=== PATIENT | male | born 1995 | race Caucasian/White ===

== ENCOUNTER 2017-04-30 07:44 | Inpatient (IN) | payer MEDICAID, OTHER ==
[2017-04-30 07:50] LABS: Glucose,Whole Blood 135 mg/dL (75-99)
[2017-04-30 08:46] LABS: Amphetamine Screen,Urine Not Detected (NotDetected); Barbiturate Screen,Urine Not Detected (NotDetected); Benzodiazepines Screen,Urine Detected (NotDetected); Cocaine Screen,Urine Not Detected (NotDetected); Methadone Screen, Urine Not Detected (NotDetected); Opiate Screen,Urine Not Detected (NotDetected); Oxycodone Screen, Urine Not Detected (NotDetected); Phencyclidine Screen,Urine Not Detected (NotDetected); Tricyclic Antidepressant,Urine Not Detected (NotDetected); Urn Cannabinoid Scrn Detected (NotDetected)
--- NOTE | 2017-04-30 09:17 | ED ---
General Adult HPI <Rj Torres - Last Filed: 04/30/17 10:44> - General Source: patient, EMS, RN notes reviewed Mode of arrival: EMS Limitations: no limitations <Cain Alfaro - Last Filed: 04/30/17 10:53> - General Chief complaint: Altered Mental Status Stated complaint: confusion Time Seen by Provider: 04/30/17 08:16 - History of Present Illness Initial comments: Patient 21-year-old male who presents emergency room in the custody of the police. Patient walked into the police department because was lost. I have brought him here petitioned the patient. He does admit that he was trying to get to work and dropped today. States he put directions into his GPS and brought him here. He believes his car is on the parking lot. Patient states she is trying to get to a new job putting his weight. He does admit that he went and stopped and talked to the police because of this. Patient denies any other complaints or symptoms. He does admit to taking a Xanax last night and also smoking marijuana was nervous about new job. (Cain Alfaro) - Related Data Home Medications Medication Instructions Recorded Confirmed No Known Home Medications [No 04/30/17 04/30/17 Known Home Medications] Allergies Allergy/AdvReac Type Severity Reaction Status Date / Time cefuroxime [From Ceftin] Allergy Rash/Hives Verified 04/30/17 08:41 Review of Systems ROS Other: All systems not noted in ROS Statement are negative. <Rj Torres - Last Filed: 04/30/17 10:44> ROS Other: All systems not noted in ROS Statement are negative. <Cain Alfaro - Last Filed: 04/30/17 10:53> ROS Statement: Those systems with pertinent positive or pertinent negative responses have been documented in the HPI. Past Medical History Past Medical History: No Reported History History of Any Multi-Drug Resistant Organisms: None Reported Past Surgical History: No Surgical Hx Reported Past Psychological History: No Psychological Hx Reported Smoking Status: Never smoker Past Alcohol Use History: Occasional Past Drug Use History: Cocaine, Marijuana <Cain Alfaro - Last Filed: 04/30/17 10:53> General Exam <Rj Torres - Last Filed: 04/30/17 10:44> Limitations: no limitations <Cain Alfaro - Last Filed: 04/30/17 10:53> - General Exam Comments Initial Comments: General: The patient is awake and alert, in no distress, and does not appear acutely ill. Eye: Pupils are equal, round and reactive to light, extra-ocular movements are intact. No nystagmus. There is normal conjunctiva bilaterally. No signs of icterus. Ears, nose, mouth and throat: There are moist mucous membranes and no oral lesions. Neck: The neck is supple, there is no tenderness or JVD. Cardiovascular: There is a regular rate and rhythm. No murmur, rub or gallop is appreciated. Respiratory: Lungs are clear to auscultation, respirations are non-labored, breath sounds are equal. No wheezes, stridor, rales, or rhonchi. Musculoskeletal: Normal ROM, no tenderness. Strength 5/5. Sensation intact. Pulses equal bilaterally 2+. Neurological: A&O x 3. CN II-XII intact, There are no obvious motor or sensory deficits. Coordination appears grossly intact. Speech is normal. Skin: Skin is warm and dry and no rashes or lesions are noted. Psychiatric: Cooperative. Alert and oriented (Cain Alfaro) Course <Rj Torres - Last Filed: 04/30/17 10:44> <Cain Alfaro - Last Filed: 04/30/17 10:53> Vital Signs 04/30/17 07:45 Temperature 99.2 F Pulse Rate 91 Respiratory 16 Rate Blood Pressure 133/73 O2 Sat by Pulse 99 Oximetry - Reevaluation(s) Reevaluation #1: 04/30/17 10:44 Patient reevaluated by myself, Dr. Torres. Patient has unclear thought processes. Patient believes he is here because he was arrested by the police for not remembering his union members name. Patient was seen by mental health services who does recommend admission. Positive clinical certificate completed. 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 ID Amairani Aiken Urine Opiates Screen Not Detected (NotDetected) Ur Oxycodone Screen Not Detected (NotDetected) Urine Methadone Screen Not Detected (NotDetected) Ur Propoxyphene Screen Not Detected (NotDetected) Ur Barbiturates Screen Not Detected (NotDetected) U Tricyclic Antidepress Not Detected (NotDetected) Ur Phencyclidine Scrn Not Detected (NotDetected) Ur Amphetamines Screen Not Detected (NotDetected) U Methamphetamines Scrn Not Detected (NotDetected) U Benzodiazepines Scrn Detected H (NotDetected) Urine Cocaine Screen Not Detected (NotDetected) U Marijuana (THC) Screen Detected H (NotDetected) Disposition <Rj Torres - Last Filed: 04/30/17 10:44> Time of Disposition: 10:53 <Cain Alfaro - Last Filed: 04/30/17 10:53> Clinical Impression: Schizophrenia, acute Disposition: TRANSFER TO PSYCH HOSP/UNIT Referrals: None,Stated [Primary Care Provider] - 1-2 days
[2017-04-30] MEDS ORDERED: MAGNESIUM HYDROXIDE 2,400 MG/10 ML CUP PO PRN (12:36)
[2017-04-30] MEDS ORDERED: MAG HYDROX/AL HYDROX/SIMETH 30 ML CUP PO PRN (12:36)
[2017-04-30] MEDS ORDERED: ACETAMINOPHEN TAB 325 MG TAB PO PRN (12:36)
[2017-04-30] MEDS ORDERED: ZIPRASIDONE 20 MG VIAL IM PRN (12:36)
[2017-04-30] MEDS ORDERED: LORazepam 1 MG TAB PO PRN (12:36)
[2017-04-30 13:17] VITALS: BMI 31.9
[2017-04-30] MEDS: OLANZapine 5 MG TAB PO SCH ×2 (15:01→21:48)
[2017-04-30] MEDS ORDERED: HALOPERIDOL 5 MG TAB PO PRN (15:29)
[2017-04-30] MEDS: HALOPERIDOL LACTATE 5 MG/ML 1 ML VIAL IM PRN (16:03)
[2017-04-30] MEDS: LORazepam 2 MG/ML INJ IM PRN (16:03)
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
[2017-05-01 09:45] LABS: Basophils # (A) 0.1 k/uL (0-0.2); Basophils % (A) 1 %; Eosinophils # (A) 0.1 k/uL (0-0.7); Eosinophils % (A) 1 %; HCT 46.8 % (39.0-53.0); HGB 15.2 gm/dL (13.0-17.5); Lymphocytes # (A) 2.8 k/uL (1.0-4.8); Lymphocytes % (A) 30 %; MCH 30.6 pg (25.0-35.0); MCHC 32.5 g/dL (31.0-37.0); MCV 94.2 fL (80.0-100.0); Mean Platelet Volume 7.3; Monocytes # (A) 0.6 k/uL (0-1.0); Monocytes % (A) 6 %; Neutrophils # (A) 5.7 k/uL (1.3-7.7); Neutrophils % (A) 61 %; Platelet Count 417 k/uL (150-450); RBC 4.96 m/uL (4.30-5.90); RDW 13.1 % (11.5-15.5); WBC 9.3 k/uL (4.0-11.0)
[2017-05-01] MEDS: OLANZapine 5 MG TAB PO SCH ×2 (10:00→20:25)
[2017-05-01 10:28] LABS: ALT 31 U/L (21-72); AST 19 U/L (17-59); Albumin 5.1 g/dL (3.5-5.0); Alkaline Phosphatase 45 U/L (38-126); Anion Gap 13 mmol/L; Blood Urea Nitrogen 18 mg/dL (9-20); Calcium 10.9 mg/dL (8.4-10.2); Carbon Dioxide 29 mmol/L (22-30); Chloride 99 mmol/L (98-107); Glucose 115 mg/dL (74-99); Potassium 4.2 mmol/L (3.5-5.1); Sodium 141 mmol/L (137-145); Total Bilirubin 0.7 mg/dL (0.2-1.3); Total Protein 8.3 g/dL (6.3-8.2)
[2017-05-01] MEDS: HALOPERIDOL LACTATE 5 MG/ML 1 ML VIAL IM PRN (13:20)
[2017-05-01] MEDS: LORazepam 2 MG/ML INJ IM PRN (13:21)
--- NOTE | 2017-05-01 16:26 | PN ---
PROGRESS NOTE DATE OF SERVICE: 05/01/2017. CHIEF COMPLAINT: The patient was admitted due to disorganized thoughts and behavior. He was delusional. He was confused and had bizarre thoughts. He was significantly distressed. INTERVAL HISTORY: Patient has been doing fair. He has had episodes where he gets quite confused and disordered in his thoughts. He will get demanding to leave. He will make references that make no sense. He can get quite intense. Yesterday and today he has required p.r.n. Haldol and Ativan. He does respond least to some extent to the medications. He has been accepting oral medications as well. He wanders about the unit. He tends to be hyperactive and intense in his manner. He continues to be quite disorganized in his thoughts. He did make an effort to elope today. He gets very intense in his manner, though he does not get into any kind of agitation or aggressive behavior. He has not had change in his general health. He tolerates his psychotropic medications. MENTAL STATUS: Patient was wandering about the unit. He gave fair eye contact. His thoughts were disorganized. He rambled and had loose association. His affect was intense. His mood is somewhat elevated. He was moderately distressed. ASSESSMENT: I will continue the current diagnosis and general treatment plan. 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 He responds to some extent to Haldol injections 10 mg along with 2 mg of Ativan. I will consider a trial injection of a higher dose of just Ativan which is the treatment of choice for catatonic excitement. Continue Zyprexa 15 mg twice a day. We will continue to focus on stabilization and discharge planning. MMODL / IJN: [id number] /
[2017-05-02] MEDS: OLANZapine 5 MG TAB PO SCH ×2 (09:20→20:41)
[2017-05-02] MEDS: LORazepam 1 MG TAB PO PRN (09:20)
[2017-05-02] MEDS ORDERED: HALOPERIDOL 5 MG TAB PO SCH (18:00)
[2017-05-02 18:56] LABS: T4, Free (Free Thyroxine) 1.68 ng/dL (0.78-2.19)
--- NOTE | 2017-05-02 21:46 | PN ---
PROGRESS NOTE DATE OF SERVICE: 05/02/2017. CHIEF COMPLAINT: The patient was admitted due to disorganized thoughts and behavior. He was delusional. He was confused and had bizarre thoughts. He was significantly distressed. INTERVAL HISTORY: The patient has been doing fair. He continues to present in quite an intense manner. He does not show significant issues with psychomotor activation; however, he continues with a lot of what appears to be racing thoughts, flight of ideas, disconnected thoughts and confusion. 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 He believes he needs to get out of the hospital. He can be quite repetitive about themes and does not seem to comprehend when staff try to guide him to what his current situation is. He continues to make some efforts toward trying to leave the unit. He does not do so in any kind of aggressive or assertive way, though believes that he needs to be out of the hospital so that he could begin work at [employer], which he makes references to over and over. He has had a pulse up to 143, otherwise has not had other changes in his general health. He tolerates his psychotropic medications. MENTAL STATUS: Patient gave an intense stare. He was tangential in his responses. He tended to ramble at times. His thoughts were disconnected. His affect was intense, his mood dysphoric. He seems significantly distressed. There was no indication of abnormal movements, tremor or rigidity. He had normal gait and stance. ASSESSMENT: I will continue the current diagnosis and treatment plan. I will start the patient on Haldol 10 mg twice a day as regular dosing in addition to Zyprexa 15 mg twice a day. The patient presents with significant psychotic symptoms. In addition, he is very delusional with pervasive thought disorder and little ability to connect with reality. I will order an EKG for an elevated pulse of 143. We will continue to focus on stabilization and discharge planning. MMODL / IJN: [id number] /
[2017-05-03] MEDS: OLANZapine 5 MG TAB PO SCH ×3 (08:16→21:44)
--- NOTE | 2017-05-04 08:47 | PN ---
PROGRESS NOTE DATE OF SERVICE: 05/03/2017. CHIEF COMPLAINT: The patient was admitted due to disorganized thoughts and behavior. He was delusional, confused and had bizarre thoughts. He was significantly distressed. INTERVAL HISTORY: Patient has been doing fair. He had a quiet evening last night. He slept fairly well. Today he has been up and about. He comes out on the unit. He wanders about the unit. He will interact some with others. It is note worthy that overall he seems to be doing a little bit better, where his thoughts are a little bit more organized, goal directed and reality based. He makes less references to things that are disorganized and disconnected. He still has fluctuating thoughts where as one moment he will say that he wants to sign a 3 day intent to leave the unit immediately and then soon thereafter reports no issues with that at all and says it is good he is in the hospital and getting help. He has talked less about the idea that he is starting work and more about the recognition that he is in the hospital and in a place that is providing him with some structure and support. He has been attending groups. Sometimes his thoughts are a little disconnected, though for the most part he has been appropriate in his general interactions. He has not had change in his general health, though still has been running a high pulse in the 120+ range. Blood pressure has been stable. He tolerates his psychotropic medications. MENTAL STATUS: Patient gave good eye contact. He asked a few appropriate questions. The seemed to be reassured with the answers I gave him particularly relating to questions about hospitalization. His thoughts were little bit more coherent and goal directed. His affect was somewhat constricted. His mood was quiet. He did appear to be distressed. ASSESSMENT: I will continue the current diagnosis and treatment plan. I will continue psychotropic medications the same. The patient appears to be making progress. We will continue to focus on stabilization and discharge planning. MMODL / IJN: [id number] /
[2017-05-04] MEDS: OLANZapine 5 MG TAB PO SCH ×2 (09:24→20:38)
--- NOTE | 2017-05-04 14:29 | PN ---
PROGRESS NOTE DATE OF SERVICE: 05/04/2017. CHIEF COMPLAINT: The patient was admitted due to disorganized thoughts and behavior. He was delusional, confused and had bizarre thoughts. He was significantly distressed. INTERVAL HISTORY: The patient has been doing fair. He had a quiet evening last night. He slept well. Today he has been up. He comes out on the unit. He has been attending groups. He has been appropriate in his interactions. Most noteworthy is that he seems to be slowly becoming more organized in his thoughts. He tends to have less rambling and disconnected thoughts. He is more aware of immediate issues. He was able to talk fairly appropriately about discharge planning. He has not had change in his general health. He tolerates his psychotropic medications. MENTAL STATUS: Patient gave good eye contact. He had a calm manner. His thoughts were clear. His affect was a little constricted. His mood was even. He did not appear to be distressed. He continues with looseness of association, though clearly showing improvement. ASSESSMENT: I will continue the current diagnosis and treatment plan. We will continue psychotropic medications the same. I would anticipate the patient being able to be discharged by the end of week. MMODL / IJN: [id number] /
--- NOTE | 2017-05-05 08:35 | P.CRDCN ---
History of Present Illness History of present illness: Male patient in the psychiatry unit. Cardiac G consulted for abnormal ECG. Patient has sinus tachycardia but he denies any symptoms prior to that. Specifically no chest discomfort no undue shortness of breath no palpitations no loss of consciousness prior to or at the time of admission or thereafter ECG reveals and shows very nonspecific ST-T changes in the inferior leads only. Sinus tachycardia noted. Labs reviewed. No cardiac history. Patient interviewed and examined with nurse practitioner and I would recommend a repeat 12-lead ECG and a 2-D echo and Doppler study to assess chronic structure and function if these are normal as no further cardiac workup needed Specifically on cardiac examination heart sounds were completely normal no murmurs no gallop no rub See full dictation by nurse practitioner Past Medical History Past Medical History: No Reported History History of Any Multi-Drug Resistant Organisms: None Reported Past Surgical History: No Surgical Hx Reported Additional Past Anesthesia/Blood Transfusion Reaction / Comment(s): Pt has never received anesthesia. Smoking Status: Never smoker - Past Family History Father History Unknown: Yes Mother Additional Family Medical History / Comment(s): Mother is healthy. Medications and Allergies Home Medications Medication Instructions Recorded Confirmed Type No Known Home Medications [No 04/30/17 04/30/17 History Known Home Medications] Allergies Allergy/AdvReac Type Severity Reaction Status Date / Time cefuroxime [From Ceftin] Allergy Rash/Hives Verified 04/30/17 08:41 Physical Exam Vitals: Vital Signs Temp Pulse Pulse Resp BP BP 05/05/17 06:37 97.6 F 108 H 16 145/63 05/04/17 20:40 84 16 128/74 05/04/17 15:04 101 H 16 127/72 Results 05/01/17 09:08 05/01/17 09:08 Current Medications Generic Name Dose Route Start Last Admin Trade Name Freq PRN Reason Stop Dose Admin Acetaminophen 650 mg 04/30/17 12:36 Tylenol Tab PO Q4HR PRN Pain/Discomfort Al Hydroxide/Mg Hydroxide 30 ml 04/30/17 12:36 Maalox PO Q4HR PRN GI Upset Haloperidol Lactate 10 mg 04/30/17 15:29 05/01/17 13:20 Haldol IM 10 mg BID PRN Administration moderate to severe agitation Lorazepam 1 mg 04/30/17 12:36 Ativan PO TID PRN Anxiety, Agitation Lorazepam 2 mg 04/30/17 15:27 05/02/17 09:20 Ativan PO 2 mg Q12HR PRN Administration agitation and anxiety Lorazepam 2 mg 04/30/17 15:27 05/01/17 13:21 Ativan IM 2 mg BID PRN Administration moderate to severe agitation Magnesium Hydroxide 2,400 mg 04/30/17 12:36 Milk Of Magnesia PO DAILY PRN Constipation Olanzapine 15 mg 04/30/17 15:05 05/04/17 20:38 Zyprexa PO 15 mg BID LUZ Administration 05/01/17 09:08 05/01/17 09:08
--- NOTE | 2017-05-05 09:41 | P.HPMEDMHU ---
History of Present Illness H&P Date: 04/30/17 Chief Complaint: psychotic 21-year-old male was brought in with psychotic episode. Patient thought that he was here for a job interview. He says he was nervous to reduce when he took one Xanax.Patient says he is upset because he was given a medication he didnt want. He says he just was anxious about his new job a now he is here. Review of Systems Constitutional: Denies chills, Denies fever Eyes: denies blurred vision, denies irritation, denies itching Ears, nose, mouth and throat: Denies dental pain, Denies nasal discharge, Denies vertigo Cardiovascular: Denies chest pain, Denies palpitations, Denies shortness of breath Respiratory: Denies cough, Denies pleurisy Gastrointestinal: Denies diarrhea, Denies nausea, Denies vomiting Genitourinary: Denies discharge, Denies polyuria Musculoskeletal: Reports as per HPI, Denies fractures Integumentary: Denies pruritus, Denies sores Neurological: Denies head injury, Denies tingling, Denies vertigo Psychiatric: Reports anxiety, Denies suicidal ideation Endocrine: Denies polyphagia, Denies polyuria Hematologic/Lymphatic: Denies easy bleeding, Denies lymphadenopathy Allergic/Immunologic: Denies persistent infections, Denies wheezing Past Medical History Past Medical History: No Reported History History of Any Multi-Drug Resistant Organisms: None Reported Past Surgical History: No Surgical Hx Reported Additional Past Anesthesia/Blood Transfusion Reaction / Comment(s): Pt has never received anesthesia. Smoking Status: Never smoker - Past Family History Father History Unknown: Yes Mother Additional Family Medical History / Comment(s): Mother is healthy. Medications and Allergies Home Medications Medication Instructions Recorded Confirmed Type No Known Home Medications [No 04/30/17 04/30/17 History Known Home Medications] Allergies Allergy/AdvReac Type Severity Reaction Status Date / Time cefuroxime [From Ceftin] Allergy Rash/Hives Verified 04/30/17 08:41 Physical Exam Vitals: Vital Signs Temp Pulse Pulse Resp BP BP Pulse Ox 04/30/17 11:47 97.1 F L 92 18 143/99 04/30/17 07:45 99.2 F 91 16 133/73 99 Intake and Output 04/30/17 04/30/17 04/30/17 06:59 14:59 22:59 Other: Weight 106.821 kg Patient Weight 05/01/17 06:59 Weight 106.821 kg - EENT Eyes: EOMI, PERRLA ENT: normal oropharynx - Neck Neck: no lymphadenopathy, no stridor - Respiratory Respiratory: bilateral: CTA, negative: rales, rhonchi, wheezing, prolonged expiration - Cardiovascular Rhythm: regular Heart sounds: normal: S1, S2 - Gastrointestinal General gastrointestinal: normal bowel sounds, no tenderness - Integumentary Integumentary: no pale, no rash - Neurologic Neurologic: CNII-XII intact - Musculoskeletal Musculoskeletal: gait normal - Psychiatric Psychiatric: A&O x's 3 Cranial Nerve Examination - Cranial Nerves Cranial Nerve II- Optic: Intact Cranial Nerve III- Oculomotor: Intact Cranial Nerve IV- Trochlear: Intact Cranial Nerve V- Trigeminal: Intact Cranial Nerve - Abducens: Intact Cranial Nerve VII- Facial: Intact Cranial Nerve VIII- Auditory: Intact Cranial Nerve IX- Glossopharyngeal: Intact Cranial Nerve X- Vagus: Intact Cranial Nerve XI- Accessory: Intact Cranial Nerve XII- Hypoglossal: Intact Results Labs: Abnormal Lab Results - Last 24 Hours (Table) 04/30/17 04/30/17 Range/Units 07:48 08:10 POC Glucose (mg/dL) 135 H (75-99) mg/dL U Benzodiazepines Scrn Detected H (NotDetected) U Marijuana (THC) Screen Detected H (NotDetected) Thrombosis Risk Factor Assmnt - Choose All That Apply Any of the Below Risk Factors Present?: Yes Each Factor Represents 1 point: Obesity (BMI >25) Other Risk Factors: No Other congenital or acquired thrombophilia - If yes, enter type in comment: No Thrombosis Risk Factor Assessment Total Risk Factor Score: 1 Thrombosis Risk Factor Assessment Level: Low Risk Assessment and Plan (1) Schizophrenia, acute Narrative/Plan: per psychiatry Current Visit: Yes Status: Acute Code(s): F23 - BRIEF PSYCHOTIC DISORDER SNOMED Code(s): 25423571
[2017-05-05] MEDS: OLANZapine 5 MG TAB PO SCH ×2 (09:48→20:28)
--- NOTE | 2017-05-05 12:11 | P.CRDCN ---
History of Present Illness Consult date: 05/05/17 History of present illness: Mr. Burgess is a pleasant 21-year-old male with past medical history of ADHD, regular marijuana use and occasional cocaine abuse. We have been asked to see him in consultation for tachycardia. He denies history of heart disease and has never seen a eye surgeon for any reason. He denies chest pain, shortness of breath, dizziness, palpitations, diaphoresis, nausea or vomiting. He is newly diagnosed with schizophrenia and has been quite agitated about being hospitalized. EKG was obtained secondary to elevated pulse rate and showed sinus tachycardia with very non-specific ST-T changes in inferior leads. Laboratory data reviewed and is unremarkable. He takes no cardiac medications. Denies cough, fever or chills. Review of Systems At the time of my exam: CONSTITUTIONAL: Denies fever. Denies chills. EYES: Denies blurred vision. Denies vision changes. Denies eye pain. EARS, NOSE, MOUTH & THROAT: Denies headache. Denies sore throat. Denies ear pain. CARDIOVASCULAR: Denies chest pain. Denies shortness of breath. Denies orthopnea. Denies PND. Denies palpitations. RESPIRATORY: Denies cough. GASTROINTESTINAL: Denies abdominal pain. Denies diarrhea. Denies constipation. Denies nausea. Denies vomiting. MUSCULOSKELETAL: Denies myalgias. INTEGUMENTARY: Denies pruitis. Denies rash. NEUROLOGIC: Denies numbness. Denies tingling. Denies weakness. PSYCHIATRIC: Denies anxiety. Denies depression. ENDOCRINE: Denies fatigue. Denies weight change. Denies polydipsia. Denies polyurina. GENITOURINARY: Denies burning, hematuria or urgency with micturation. HEMATOLOGIC: Denies history of anemia. Denies bleeding. Past Medical History Past Medical History: No Reported History History of Any Multi-Drug Resistant Organisms: None Reported Past Surgical History: No Surgical Hx Reported Additional Past Anesthesia/Blood Transfusion Reaction / Comment(s): Pt has never received anesthesia. Smoking Status: Never smoker - Past Family History Father History Unknown: Yes Mother Additional Family Medical History / Comment(s): Mother is healthy. Medications and Allergies Home Medications Medication Instructions Recorded Confirmed Type No Known Home Medications [No 04/30/17 04/30/17 History Known Home Medications] Allergies Allergy/AdvReac Type Severity Reaction Status Date / Time cefuroxime [From Ceftin] Allergy Rash/Hives Verified 04/30/17 08:41 Physical Exam Vitals: Vital Signs Temp Pulse Pulse Resp BP BP 05/05/17 06:37 97.6 F 108 H 16 145/63 05/04/17 20:40 84 16 128/74 05/04/17 15:04 101 H 16 127/72 Blood pressure 145/63, heart rate 108, afebrile. GENERAL: This is a 21-year-old male in no apparent distress at the time of my examination. HEENT: Head is atraumatic, normocephalic. Pupils are equal, round. Sclerae anicteric. Conjunctivae are clear. Mucous membranes of the mouth are moist. Neck is supple. There is no jugular venous distention. No carotid bruit is heard. LUNGS: Clear to auscultation no wheezes, rales or rhonchi. No chest wall tenderness is noted on palpation or with deep breathing. HEART: Regular rate and rhythm without murmurs, rubs or gallops. S1 and S2 heard. ABDOMEN: Soft, non-tender. Bowel sounds are heard. No organomegaly noted. EXTREMITIES: 2+ peripheral pulses with no evidence of peripheral edema and no calf tenderness noted. NEUROLOGIC: Patient is awake, alert and oriented x3. Results 05/01/17 09:08 05/01/17 09:08 Current Medications Generic Name Dose Route Start Last Admin Trade Name Freq PRN Reason Stop Dose Admin Acetaminophen 650 mg 04/30/17 12:36 Tylenol Tab PO Q4HR PRN Pain/Discomfort Al Hydroxide/Mg Hydroxide 30 ml 04/30/17 12:36 Maalox PO Q4HR PRN GI Upset Haloperidol Lactate 10 mg 04/30/17 15:29 05/01/17 13:20 Haldol IM 10 mg BID PRN Administration moderate to severe agitation Lorazepam 1 mg 04/30/17 12:36 Ativan PO TID PRN Anxiety, Agitation Lorazepam 2 mg 04/30/17 15:27 05/02/17 09:20 Ativan PO 2 mg Q12HR PRN Administration agitation and anxiety Lorazepam 2 mg 04/30/17 15:27 05/01/17 13:21 Ativan IM 2 mg BID PRN Administration moderate to severe agitation Magnesium Hydroxide 2,400 mg 04/30/17 12:36 Milk Of Magnesia PO DAILY PRN Constipation Olanzapine 15 mg 04/30/17 15:05 05/05/17 09:48 Zyprexa PO 15 mg BID LUZ Administration 05/01/17 09:08 05/01/17 09:08 Assessment and Plan Assessment: ASSESSMENT 1. Sinus tachycardia 2. Acute schizophrenia PLAN Repeat EKG now. Obtain 2-D echocardiogram and Doppler study to assess cardiac structure and function. He needs no further cardiac workup at this time. Zyprexa is a new addition to his regimen and does carry a risk of tachycardia, perhaps an alternative anti-psychotic or dose reductions. Nurse Practitioner note has been reviewed, I agree with a documented findings and plan of care. Patient was seen and examined.
--- NOTE | 2017-05-05 16:46 | P.PN ---
Progress Note - Text Date of service: 05/05/2017 Chief complaint: "I'm feeling better and I want to leave " Subjective: The patient has been seen today as follow-up, chart reviewed, case discussed with the treatment team. Patient slept about 7 hours last night. Patient has been not persistently going to groups and other unit activities. Patient reports fair appetite problems. Generally the patient minimized most of his psychiatric symptoms and reported that he has been feeling increasingly stable mentally and emotionally. Patient explained that the reason for his admission he went to the police station and he thought that is a [employer] building and he gets very competitive and not compliant with the police. Patient denies any current depression or mood swings and he reported that feeling less anxious and denies any racing thoughts. The patient denies any hallucination and he denies feeling paranoid. He denies any suicidal or homicidal ideation. Patient denies any prior psychiatric hospitalization and reported the only psychiatric diagnosis he had before this admission was ADD. Patient admitted for using Xanax and marijuana before he went to the police station. The patient is compliant with his medications and denies any adverse reactions. Review of other systems: Patient denies any physical symptoms besides what has been mentioned above. No breathing problems, no chest pain reported today. Objective: Vitals has been reviewed. Mental status examination; Appearance: The patient appears stated age, fairly groomed, no specific features. Gait/posture:normal gait, Normal arm swinging: No abnormal movements. Attitude and behavior: engaged, cooperative, eye contact. Motor activity: normal psychomotor activity Speech: Normal rate and dressed Mood: anxious Affect: Constricted to flat Thought form: goal-directed, linear, coherent. Thought content: Non-delusional, denies suicidal thoughts, denies homicidal thoughts, denies intentions or plans. Perception: Denies any auditory or visual hallucinations Attention: No impairment. Patient was able to repeat serial 5. Orientation: Patient patient was fully oriented to time place person and situation. Insight: Patient has limited insight about his psychiatric disorder. Judgment: Patient has limited judgment about his psychiatric treatment. Assessment: Unspecified psychosis Rule out substance-induced psychosis Plan: Continue with inpatient psychiatric hospitalization for monitoring and continue treatment. Continue group therapy and other unit activities. Continue psychiatric medications: Zyprexa 15 mg twice a day for psychotic symptoms
[2017-05-06] MEDS: OLANZapine 5 MG TAB PO SCH ×2 (08:24→21:55)
--- NOTE | 2017-05-06 10:54 | ECHOF ---
Referral Reason:ekg changes MEASUREMENTS -------- HEIGHT: 182.9 cm WEIGHT: 108.0 kg BP: 128/74 RVIDd: 3.3 cm (< 3.3) IVSd: 1.1 cm (0.6 - 1.1) LVIDd: 5.4 cm (3.9 - 5.3) LVPWd: 1.1 cm (0.6 - 1.1) IVSs: 1.5 cm LVIDs: 3.5 cm LVPWs: 1.9 cm LA Diam: 3.7 cm (2.7 - 3.8) LAESV Index (A-L): 22.61 ml/m Ao Diam: 3.2 cm (2.0 - 3.7) AV Cusp: 2.8 cm (1.5 - 2.6) MV EXCURSION: 20.477 mm (> 18.000) MV EF SLOPE: 148 mm/s (70 - 150) EPSS: 0.4 cm MV E Jorge: 1.03 m/s MV DecT: 180 ms MV A Jorge: 0.61 m/s MV E/A Ratio: 1.68 RAP: 5.00 mmHg RVSP: 19.13 mmHg FINDINGS -------- Sinus rhythm. This was a technically good study. The left ventricular size is normal. There is borderline concentric left ventricular hypertrophy. Overall left ventricular systolic function is normal with, an EF between 60 - 65 %. The right ventricle is normal in size. Normal LA size by volume 22+/-6 ml/m2. The right atrium is normal in size. The aortic valve is trileaflet and appears structurally normal. The mitral valve is normal. Trace tricuspid regurgitation present. Right ventricular systolic pressure is normal at < 35 mmHg. There is no pulmonic regurgitation present. The aortic root size is normal. IVC Not well visulized. There is no pericardial effusion. CONCLUSIONS -------- 1. Sinus rhythm. 2. This was a technically good study. 3. The left ventricular size is normal. 4. There is borderline concentric left ventricular hypertrophy. 5. Overall left ventricular systolic function is normal with, an EF between 60 - 65 %. 6. The right ventricle is normal in size. 7. Normal LA size by volume 22+/-6 ml/m2. 8. The right atrium is normal in size. 9. The aortic valve is trileaflet and appears structurally normal. 10. The mitral valve is normal. 11. Trace tricuspid regurgitation present. 12. Right ventricular systolic pressure is normal at < 35 mmHg. 13. There is no pulmonic regurgitation present. 14. The aortic root size is normal. 15. IVC Not well visulized. 16. There is no pericardial effusion. DEGREE CLERK: Allison Dick RDCS
--- NOTE | 2017-05-06 16:43 | P.PN ---
Progress Note - Text Date of service: 05/06/2017 Chief complaint: "I will not take any medication and I know my body the best " Subjective: The patient has been seen today as follow-up, chart reviewed, case discussed with the treatment team. The patient presented today very irritated and when was asking about his decision not to take medication he reported that he will not take any medication and he knows his body the best. When the patient was explained about the effect of the medication and the risk of stopped taking the medication that he might relapse on his prior symptoms, he expressed very minimal insight and continued to verbalize that he will not take the medication. Patient has very limited insight about his psychotic behavior for coming to the hospital attributed that only to the Xanax and marijuana. From the patient history that has been using marijuana for long period and the Xanax taken before hospitalization was low-dose that doesn't explain the incident of psychotic behavior before hospitalization. Also from the patient's history that he has been treated for psychiatric problems and has been suffering from mood swings and agitations for most of his life. When patient explained about the above he continued to show no interest in taking medication and will not comply with any treatment recommendations. The patient was very superficial and guarded when talking about his symptoms but he generally denies feeling suicidal or homicidal and he denies any hallucinations. He denies any sleep problem and he denies depression or anxiety. Again I tried to explain to patient that the mood stabilization and control of his psychotic symptoms was because of taking medication and by refusing taking the medication he would be at high risk to deteriorate again and probably would put himself and others at very high risk due to unpredictable impulsive psychotic behavior. The patient was listening but again he has no or very limited insight about his symptoms and the need for treatment and continued to verbalize that he will not take any medication. Objective: Vitals has been reviewed. Mental status examination; Appearance: The patient appears stated age, partially disheveled, no specific features. Gait/posture:normal gait, Normal arm swinging: No abnormal movements. Attitude and behavior: Argumentative and not cooperative Motor activity: normal psychomotor activity Speech: Normal rate and rhythm Mood: anxious, irritable Affect: Constricted to flat Thought form: goal-directed, linear, coherent. Perseverance Thought content: Non-delusional, denies suicidal thoughts, denies homicidal thoughts, denies intentions or plans. Perception: Denies any auditory or visual hallucinations Attention: No impairment. Orientation: Patient patient was fully oriented to time place person and situation. Insight: Patient has limited insight about his psychiatric disorder. Judgment: Patient has limited judgment about his psychiatric treatment. Assessment: Unspecified psychosis Rule out substance-induced psychosis Plan: Continue with inpatient psychiatric hospitalization for monitoring and continue treatment. Continue group therapy and other unit activities. Continue psychiatric medications: Will continue to encourage the patient to take his psychiatric medication.
[2017-05-07] MEDS: OLANZapine 5 MG TAB PO SCH (08:26)
--- NOTE | 2017-05-07 13:35 | P.PN ---
Progress Note - Text Date of service: 05/08/2017 Chief complaint: Patient requested to start on medication but not Zyprexa. Subjective: The patient has been seen today as follow-up, chart reviewed, case discussed with the treatment team. Patient slept about more than 6 hours last night. Patient has been not persistently going to groups and other unit activities. Patient reports fair appetite problems. The patient came today and requested to talk to me. He explained himself that he is not refusing medication or getting help but he doesn't want to continue to taking Zyprexa which he has been refusing for the last 2 days. He stated that the Zyprexa causing him to feel tired and groggy. He also expressed concern about gaining weight if he maintained on Zyprexa. He reported history of mood swings, irritable mood and at times very agitated even before the incident happened prior to his admission. Patient has some paranoid thoughts especially when comes to treatment and what medication he is taking. He was claiming that he was received Xanax which is not at his medication list and he was very fixated on seeing the picture and the color of the pills that he will take. We discussed to start on Abilify as a mood stabilizer and to help with the paranoia and he agreed. He stated that he would sign deferral and he will continue his treatment up to next week until he gets stable. The patient is compliant with his medications and denies any adverse reactions. Review of other systems: Patient denies any physical symptoms besides what has been mentioned above. No breathing problems, no chest pain reported today. Objective: Vitals has been reviewed. Mental status examination; Appearance: The patient appears stated age, fairly groomed, no specific features. Gait/posture:normal gait, Normal arm swinging: No abnormal movements. Attitude and behavior: engaged, cooperative, fair eye contact. Motor activity: normal psychomotor activity Speech: Normal rate and dressed Mood: anxious, irritable Affect: Constricted Thought form: goal-directed, linear, coherent. Thought content: Non-delusional, denies suicidal thoughts, denies homicidal thoughts, denies intentions or plans. Perception: Denies any auditory or visual hallucinations Attention: No impairment. Patient was able to repeat serial 5. Orientation: Patient patient was fully oriented to time place person and situation. Insight: Patient has better insight about his psychiatric disorder. Judgment: Patient has better judgment about his psychiatric treatment. Assessment: Unspecified mood disorder Unspecified psychosis Rule out substance-induced psychosis Plan: Continue with inpatient psychiatric hospitalization for monitoring and continue treatment. Continue group therapy and other unit activities. Continue psychiatric medications: Discontinue Zyprexa and start Abilify 5 mg by mouth daily as a mood stabilizer with the plan to increase Abilify to 10 mg daily
[2017-05-07] MEDS: ARIPiprazole 5 MG TAB PO SCH (15:38)
[2017-05-08] MEDS: ARIPiprazole 5 MG TAB PO SCH (08:44)
--- NOTE | 2017-05-08 15:26 | P.PN ---
Progress Note - Text Date of service: 05/08/2017 Chief complaint: "I'm feeling much better " Subjective: The patient has been seen today as follow-up, chart reviewed, case discussed with the treatment team. Patient slept about more than 7 hours last night. Patient has been going to some groups and other unit activities. Patient reports fair appetite. Patient reported has been feeling emotionally stable and minimized mood swings and irritability. He denies feeling depressed or suicidal. He denies feeling hopeless and he denies any psychotic or manic symptoms. The patient ported no side effects for Abilify and he feels happy with this experience. He verbalized willing to continue his treatment with Abilify even after discharge. The patient requested to be discharged early next week and I talked to the patient about if he continued to show stability over the weekend he would have a very high chance to be discharged on Thursday or Thursday but that according to the psychiatrist following with him. The patient is compliant with his medications and denies any adverse reactions. Review of other systems: Patient denies any physical symptoms besides what has been mentioned above. No breathing problems, no chest pain reported today. Objective: Vitals has been reviewed. Mental status examination; Appearance: The patient appears stated age, fairly groomed, no specific features. Gait/posture:normal gait, Normal arm swinging: No abnormal movements. Attitude and behavior: engaged, cooperative, fair eye contact. Motor activity: normal psychomotor activity Speech: Normal rate and dressed Mood: anxious Affect: Constricted Thought form: goal-directed, linear, coherent. Thought content: Non-delusional, denies suicidal thoughts, denies homicidal thoughts, denies intentions or plans. Perception: Denies any auditory or visual hallucinations Attention: No impairment. Patient was able to repeat serial 5. Orientation: Patient patient was fully oriented to time place person and situation. Insight: Patient has better insight about his psychiatric disorder. Judgment: Patient has better judgment about his psychiatric treatment. Assessment: Unspecified mood disorder Unspecified psychosis Rule out substance-induced psychosis Plan: Continue with inpatient psychiatric hospitalization for monitoring and continue treatment. Continue group therapy and other unit activities. Continue psychiatric medications: Continue Abilify 5 mg daily as a mood stabilizer. The the patient is currently stable and no need to increase the dose at this time.
[2017-05-09 04:55] VITALS: RESP 16
[2017-05-09] MEDS: ARIPiprazole 5 MG TAB PO SCH (08:13)
--- NOTE | 2017-05-09 16:05 | P.PN ---
Progress Note - Text interval history: The patient is found in his room he follows me [facility] interview room. The psychiatric evaluation and recent progress notes have been reviewed. The patient was admitted for symptoms of psychosis. He states he has no symptoms at this time he is happy with the Abilify 5 mg daily. We discussed that the Abilify may be too low a dose that he is resistant to the dose being increased at this time. He was initially placed on Zyprexa and did not feel the medication was right and could not tolerate side effects related to it. He is endorsing no suicidal thoughts or homicidal thoughts he states he attended groups and is able to sleep and eat appropriately. Mental status exam: The patient is alert he is dressed in his own clothing hygiene grooming adequate speech is fluent spontaneous nonpressured he remains calm but is argumentative at times. He reports no suicidal or homicidal ideation intent or plan he is reporting no auditory or visual hallucinations or specific delusions. He is focused on the idea of being discharged Thursday. Insight and judgment appear to have improved compared to admission notes. Plan: The patient will continue his current medication he is asked to consider letting us titrate the Abilify to 10 mg daily. He does appear improved compared to the mental status exam in the psychiatric evaluation. We will monitor him for safety and encourage full participation in the milieu.
[2017-05-10] MEDS: ARIPiprazole 10 MG TAB PO SCH (08:26)
--- NOTE | 2017-05-10 15:33 | P.PN ---
Progress Note - Text Interval history: The patient is found in the hallway he follows me to an interview room he reports he is doing well. He has been compliant with the increased dose of Abilify. He is hoping to be discharged tomorrow. He is reporting no symptoms he indicates he slept well last night. Appetite stable. He is endorsing no racing thoughts. Mental status exam: The patient is alert he seated calmly he is pleasant and cooperative. He reports his mood is good affect is bright. He is reporting no acute suicidal or homicidal ideation intent or plan. He is endorsing no auditory or visual hallucinations or specific delusions. He is demonstrating no symptoms of psychosis. Thought process demonstrates no tangential thinking loose associations or flight of ideas he does not appear hypomanic or manic at this time. Insight and judgment appear to have improved. He demonstrates no verbal or physical aggressiveness no abnormal involuntary movements observed. Plan: The patient will continue on his current psychotropic medications we will monitor him for safety. He is encouraged to continue attending groups. He appears to be stabilizing clinically.
[2017-05-10] MEDS: LORazepam 1 MG TAB PO PRN (22:13)
[2017-05-11 07:15] VITALS: BP 115/68; PULSE 79; TEMP 97.8
[2017-05-11] MEDS: ARIPiprazole 10 MG TAB PO SCH (08:27)
[2017-05-11] MEDS: LORazepam 1 MG TAB PO PRN (09:31)
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
== END 2017-05-11 14:25 | disposition home or self-care (01) | DRG 885 ==
LOC: EC 07:44 → 3MHU 11:25
PROVIDERS: ADMIT Psychiatry & Neurology Psychiatry; ATTEND Psychiatry & Neurology Psychiatry
DX: F20.9 Schizophrenia, unspecified (principal); F22 Delusional disorders; F12.90 Cannabis use, unspecified, uncomplicated; Z62.810 Personal history of physical and sexual abuse in childhood; R45.4 Irritability and anger; R00.0 Tachycardia, unspecified; F90.9 Attention-deficit hyperactivity disorder, unspecified type; F39 Unspecified mood [affective] disorder; Z81.8 Family history of other mental and behavioral disorders; Z82.3 Family history of stroke; Z88.1 Allergy status to other antibiotic agents; Z91.83 Wandering in diseases classified elsewhere
CPT/HCPCS: 36415; 80053; 80306; 82075; 84439; 84443; 84481; 85025; 93005; 93306; 99285

== ENCOUNTER 2017-06-05 22:01 | Inpatient (IN) | payer MEDICAID, OTHER ==
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
[2017-06-06 01:04] LABS: Amphetamine Screen,Urine Not Detected (NotDetected); Barbiturate Screen,Urine Not Detected (NotDetected); Benzodiazepines Screen,Urine Not Detected (NotDetected); Cocaine Screen,Urine Not Detected (NotDetected); Methadone Screen, Urine Not Detected (NotDetected); Opiate Screen,Urine Not Detected (NotDetected); Oxycodone Screen, Urine Not Detected (NotDetected); Phencyclidine Screen,Urine Not Detected (NotDetected); Tricyclic Antidepressant,Urine Not Detected (NotDetected); Urn Cannabinoid Scrn Detected (NotDetected)
[2017-06-06] MEDS ORDERED: ZIPRASIDONE 20 MG VIAL IM PRN (02:39)
[2017-06-06] MEDS ORDERED: LORazepam 1 MG TAB PO PRN (02:39)
[2017-06-06] MEDS ORDERED: MAG HYDROX/AL HYDROX/SIMETH 30 ML CUP PO PRN (02:39)
[2017-06-06] MEDS ORDERED: ACETAMINOPHEN TAB 325 MG TAB PO PRN (02:39)
[2017-06-06] MEDS ORDERED: MAGNESIUM HYDROXIDE 2,400 MG/10 ML CUP PO PRN (02:39)
[2017-06-06 03:01] VITALS: RESP 16
--- NOTE | 2017-06-06 03:13 | P.HPMEDMHU ---
History of Present Illness H&P Date: 06/06/17 Chief Complaint: Certification Patient is a 21-year-old male with past medical history of ADHD, marijuana use, and recent syncopal event who was brought into the ER via his escort due to a petition. He had been missing a court appointed psychiatric appointment but not taking his medication. Patient seen and examined with nurse present. He states that he has no complaints currently. He feels frustrated that he is here. He states that he felt he did not need his appointments after he left the hospital and therefore did not go to his appointments. He states that he has not been taking his Abilify since leaving the hospital. He reports that he took it one day and then had a syncopal episode. He states that he took the medication before bed. He got up out of the bathroom approximately 2 hours later. He remembers waking up on the bathroom floor with his grandfather standing above him asking if he is okay. He reports that he went to [facility] and was evaluated and had a head CT which was normal and he was released. He denies any anxiety, depression, and change in sleep pattern. He has no other complaints currently. He was discovered to have enlarged left tonsil which the patient states is chronic and has been there since childhood. Review of Systems General: no fever/chills, no rigors, no weight loss/weight gain, no unusual fatigue Eyes: no noticable visual changes, no loss of vision ENT: no rhinorrhea, no congestion, no sore throat Cardiovascular: no chest pain, no palpitations, no preyncope/syncope, no edema Pulmonary: no shortness of breath, no wheezing, no cough Abdominal: no abdominal pain, no constipation, no diarrhea, no vomiting, no nausea Genitourinary: no dysuria, no urinary frequency, no unusual discharge/odor Neuro: no unusual paresthesias, no unusual paresis/paralysis, no headache Dermatologic: no unusual rashes, no unusual lesions, no unusual changes in nails Hematologic: no hemoptysis, no hematuria, no melena/hematochezia Psychiatric: no changes in mood or behaviors, no changes in sleep pattern Past Medical History Past Medical History: No Reported History History of Any Multi-Drug Resistant Organisms: None Reported Past Surgical History: No Surgical Hx Reported Additional Past Anesthesia/Blood Transfusion Reaction / Comment(s): Pt has never received anesthesia. Past Psychological History: ADD/ADHD, Bipolar Smoking Status: Never smoker - Past Family History Father History Unknown: Yes Mother Additional Family Medical History / Comment(s): Mother is healthy. He no longer speaks to his mother. Maternal grandfather- CVA Medications and Allergies Home Medications Medication Instructions Recorded Confirmed Type ARIPiprazole [Abilify] 10 mg PO DAILY #30 tab 05/11/17 06/05/17 Rx Allergies Allergy/AdvReac Type Severity Reaction Status Date / Time cefuroxime [From Ceftin] Allergy Rash/Hives Verified 06/05/17 23:03 Physical Exam Osteopathic Statement: *. No significant issues noted on an osteopathic structural exam other than those noted in the History and Physical/Consult. Vitals: Vital Signs Temp Pulse Pulse Resp BP BP Pulse Ox 06/06/17 02:59 97.7 F 66 16 115/71 06/05/17 22:33 97.4 F L 79 18 124/71 95 Intake and Output 06/05/17 06/05/17 06/06/17 14:59 22:59 06:59 Other: Weight 111.13 kg Patient Weight 06/06/17 06:59 Weight 111.13 kg General: non toxic, no distress, appears at stated age, normal weight Derm: no unusual rashes/lesions no unusual ecchymoses, warm, dry Head: atraumatic, normocephalic, symmetric Eyes: EOMI, no lid lag, anicteric sclera, pupils equal round reactive to light ENT: Nose and ears atraumatic, no thrush, no pharyngeal erythema, enlarged left tonsil Neck: No thyromegaly, no cervical lymphadenopathy, trachea midline, supple Mouth: no lip lesion, mucus membranes moist Cardiovascular: S1S2 reg, no murmur, positive posterior tibial pulse bilateral, no edema, capillary refill less than 2 seconds Lungs: CTA bilateral, no rhonchi, no rales , no accessory muscle use Abdominal: soft, nontender to palpation, no guarding, no appreciable organomegaly, normal bowel sounds Ext: no gross muscle atrophy, muscle strength 5 out of 5 in upper extremities grossly, no contractures, Neuro: CN II-XI grossly intact, light touch intact all 4 extremities, finger to nose within normal limits, Psych: Alert, oriented, appropriate affect Cranial Nerve Examination - Cranial Nerves Cranial Nerve II- Optic: Intact Cranial Nerve III- Oculomotor: Intact Cranial Nerve IV- Trochlear: Intact Cranial Nerve V- Trigeminal: Intact Cranial Nerve - Abducens: Intact Cranial Nerve VII- Facial: Intact Cranial Nerve VIII- Auditory: Intact Cranial Nerve IX- Glossopharyngeal: Intact Cranial Nerve X- Vagus: Intact Cranial Nerve XI- Accessory: Intact Cranial Nerve XII- Hypoglossal: Intact Results Labs: Abnormal Lab Results - Last 24 Hours (Table) 06/06/17 Range/Units 00:45 U Marijuana (THC) Screen Detected H (NotDetected) Thrombosis Risk Factor Assmnt - DVT/VTE Prophylaxis DVT/VTE Prophylaxis: Low risk, early ambulation encouraged Assessment and Plan Assessment: Bipolar disorder - Your psych management Illicit drug use with THC - cessation Recent syncopal event - patient does not want to be started on abilify again as he believes this led to the event -had an EKG last admission which showed sinus tach, echo was normal in 2017. No additional testing warranted at this time. Thank you for allowing us to participate in the care of this patient. We will follow peripherally. Do not hesitate to contact us with questions. Someone can be reached from the [facility] hospitalist group at all hours of the day at [phone].
[2017-06-06] MEDS ORDERED: NICOTINE 14MG/24HR PATCH TRANSDERM SCH (09:00)
[2017-06-06 09:39] LABS: Appearance,Urine Clear (Clear); Bilirubin,Urine Negative (Negative); Blood,Urine Negative (Negative); Color,Urine Yellow; Glucose,Urine (UA) Negative (Negative); Ketones,Urine Negative (Negative); Leukocyte Esterase,Urine Negative (Negative); Nitrite,Urine Negative (Negative); PH, Urine 5.5 (5.0-8.0); Protein,Urine Negative (Negative); Specific Gravity,Urine 1.017 (1.001-1.035); Urobilinogen,Urine <2.0 mg/dL (<2.0)
--- NOTE | 2017-06-06 15:54 | P.HP ---
Psychiatric H&P - . H&P Date: 06/06/17 History & Physical: Allergies Allergy/AdvReac Type Severity Reaction Status Date / Time cefuroxime [From Ceftin] Allergy Rash/Hives Verified 06/06/17 06:10 Vital Signs Temp 97.7 F 06/06/17 02:59 Pulse 66 06/06/17 02:59 Resp 16 06/06/17 02:59 BP 115/71 06/06/17 02:59 Pulse Ox 95 06/05/17 22:33 Intake & Output 06/05/1718 06/06/17 18:59 06:59 18:59 Weight 111.13 kg Laboratory Last Values Urine Color Yellow 06/06/17 09:19 Urine Appearance Clear (Clear) 06/06/17 09:19 Urine pH 5.5 (5.0-8.0) 06/06/17 09:19 Ur Specific [place] 1.017 (1.001-1.035) 06/06/17 09:19 Urine Protein Negative (Negative) 06/06/17 09:19 Urine Glucose (UA) Negative (Negative) 06/06/17 09:19 Urine Ketones Negative (Negative) 06/06/17 09:19 Urine Blood Negative (Negative) 06/06/17 09:19 Urine Nitrite Negative (Negative) 06/06/17 09:19 Urine Bilirubin Negative (Negative) 06/06/17 09:19 Urine Urobilinogen <2.0 mg/dL (<2.0) 06/06/17 09:19 Ur Leukocyte Esterase Negative (Negative) 06/06/17 09:19 Urine Opiates Screen Not Detected (NotDetected) 06/06/17 00:45 Ur Oxycodone Screen Not Detected (NotDetected) 06/06/17 00:45 Urine Methadone Screen Not Detected (NotDetected) 06/06/17 00:45 Ur Propoxyphene Screen Not Detected (NotDetected) 06/06/17 00:45 Ur Barbiturates Screen Not Detected (NotDetected) 06/06/17 00:45 U Tricyclic Antidepress Not Detected (NotDetected) 06/06/17 00:45 Ur Phencyclidine Scrn Not Detected (NotDetected) 06/06/17 00:45 Ur Amphetamines Screen Not Detected (NotDetected) 06/06/17 00:45 U Methamphetamines Scrn Not Detected (NotDetected) 06/06/17 00:45 U Benzodiazepines Scrn Not Detected (NotDetected) 06/06/17 00:45 Urine Cocaine Screen Not Detected (NotDetected) 06/06/17 00:45 U Marijuana (THC) Screen Detected (NotDetected) H 06/06/17 00:45 06/06/17 15:40 IDENTIFYING DATA: 21-year-old single male patient HPI: Patient admitted to the inpatient psychiatric unit on an active deferral order related to noncompliance. Patient states that he was here in the beginning of May. He says he was doing drugs (abusing Xanax and using marijuana). He states that he had blacked out from Xanax. He says he is in the hospital for approximately 2 weeks. The impression per chart was acute psychotic episode. He says he didn't read as discharge papers and didn't always appointment date. He had rescheduled his appointment and states that his grandpa had an appointment apparently the same days so he blew it off. He says they did a wellness check and brought him to the hospital because he didn' t follow up. Patient states that he was doing great he says life has been going good and he's been using his coping skills and changed his support system. He says after taking the Abilify for a few days of medium passout he thinks he took it for a week total. Feeling his mood has been very stable the past couple of weeks he's taking better care of himself. He says recently has not been having any hallucinations or paranoid thoughts. No recent thoughts of harm to self or others. He says been sleeping very good. PAST PSYCHIATRIC HISTORY: Patient had a recent inpatient psychiatric hospital he should at the end of April, impression was acute psychotic episode. He was on Abilify 10 mg daily at discharge. He reports that he feels that that made him passout. He has a history of threatening suicide in the past but never acted on it. He had been on Zyprexa prior during his previous hospitalization here. PMH: Denies ALLERGIES: Cefuroxime MEDICATIONS: Tylenol when necessary, Maalox when necessary, Ativan when necessary, milk of magnesia when necessary, Geodon when necessary CHEMICAL DEPENDENCY HISTORY: Patient reports that he is used marijuana just once since he was out of the hospital. He denies any alcohol use. He has not been abusing Xanax. Per chart history he had reported using alcohol at least about twice a week, last summer quitting again alcohol altogether. FAMILY PSYCHIATRIC HISTORY: Denies FAMILY CHEMICAL DEPENDENCY HISTORY: None known at this time. SOCIAL HISTORY: Patient reports that he has a job interview in a [employer] on Thursday. He lives with his grandpa. He's never been . No current relationship. Per chart history has been able to hold down jobs at a been somewhat demanding. MENTAL STATUS EXAM: He is alert and overall cooperative with the interview. His speech is fluent, not rapid or pressured. His thought processes overall are organized. His mood is described as "good." He denies any thoughts of harm to self or others. He does not show any significant agitation. He inquires regarding being discharged from the hospital, makes reference to requesting a court hearing. Cognitively appears to be grossly intact. Insight is adequate, judgment shows evidence of recent impairment. STRENGTHS/WEAKNESSES: Strengths per chart history work history; weaknesses- coping skills, recent noncompliance INTELLECTUAL FUNCTIONING: average IMPRESSIONS: AXIS I : per chart history recent acute psychotic episode, rule out related to drug use versus associated with mood disorder; rule out histories of sedative hypnotic use disorder, cannabis use disorder, alcohol use disorder PLAN: Patient is admitted to the inpatient psychiatric unit [facility] on an active deferral order regarding noncompliance. He would placed on SP 15 minute precautions. Her but despite group and activity therapies. His laboratory workup was done the patient medical consultation will be ordered. We discussed psychotropic medication treatment as he had recently been discharged on Abilify he felt like he had side effects with the Abilify. We discussed the use of an alternative agent, he would prefer to go back to Zyprexa. We'll prescribe Zyprexa at a lower dose than previously, 5 mg at bedtime. Zyprexa to help reduce any risk of relapse symptoms of psychosis. We' ll look into any family supports. Estimated length of stay is 3-5 days. Prognosis guarded. We'll continue to cover this patient through the weekend. He does inquire regarding being discharged from the hospital and also makes a reference to requesting a court hearing.
[2017-06-06 18:08] LABS: Urine Alcohol Negative (Negative); Urine Barbiturate Negative (Negative); Urine Cocaine Negative (Negative); Urine Methadone Negative (Negative); Urine Opiates Negative (Negative); Urine Phencyclidine Negative (Negative)
[2017-06-06] MEDS: OLANZapine 5 MG TAB PO SCH (21:11)
--- NOTE | 2017-06-07 15:14 | P.PN ---
Progress Note - Text Progress Note Date: 06/07/17 Interval history: Patient is seen again in cross coverage today. He did take the Zyprexa last night and slept well through the night. He does describe some carryover sedation today but seems to be tolerable. He does not report any feelings as though he was going to pass out. He has talked to as grandpa. He relates that he helps his grandpa with a lot of things. He talks about his grandpa is going to be having upcoming surgery. Mental status exam: He is alert and cooperative with the interview. His mood seems to be stable. He does not verbalize any thoughts of harm to self or others. He does not verbalize any hallucinations or jaylan delusional thoughts. He does not show any significant agitation. Plan: We'll maintain current psychotropic medication regimen. We'll monitor for any side effects monitor his ongoing response. Did discuss with him that a demand for hearing was filed, he was on existing deferral order, discussed with him that more would be found out tomorrow regarding the date of any hearing.
[2017-06-07] MEDS: OLANZapine 5 MG TAB PO SCH (20:23)
[2017-06-08] MEDS: OLANZapine 5 MG TAB PO SCH (12:44)
--- NOTE | 2017-06-08 18:17 | PN ---
PROGRESS NOTE DATE OF SERVICE: 06/08/2017. CHIEF COMPLAINT: The patient was admitted on a pickup ordered due to noncompliance. He was not making appointments at the [facility]. He stopped taking medications. INTERVAL HISTORY: Patient has been doing fair. He had a quiet evening last night. He slept well. Today he has been up. He says overall he has been doing fairly well. When I reviewed with the patient issues related to his deferral status and an anticipated court hearing. He seemed to understand the situation reasonably well. He currently is on Zyprexa. He had not wanted to take that during his previous hospitalization man because he was concerned about potential weight gain issues. It is noted that when he took Zyprexa he did not have any issues with increased appetite. He talked about how when he was home and had been on Abilify 10 mg a day, he passed out, though it is not clear what factors may have precipitated that. He seems to be in a fairly calm mood. He has not had change in his general health. He tolerates his psychotropic medication. MENTAL STATUS: Patient gave good eye contact. He was a little restless. Thoughts at times were a little rambling and tangential. For the most part, he stayed on track with the conversation. His affect was somewhat blunted. His mood reserved. He did not appear to be significantly distressed. ASSESSMENT: I will continue the current diagnosis and the general treatment plan. I will increase his Zyprexa to 5 mg in the morning and 10 mg in the evening. I discussed with the patient that the current dose would be in the more therapeutic range given the psychotic symptoms he had prior to his hospitalization. I had an extensive discussion with the patient regarding risk for his use of marijuana as it relates to psychosis. It is also noted that the patient believes his father may have had schizophrenia, which not only would increase his risk for developing schizophrenia though also marijuana would increase his risk for earlier onset of a psychotic illness. We will continue to focus on stabilization and discharge planning. ERNESTO / CARLOS: [id number] /
[2017-06-08] MEDS: OLANZapine 10 MG TAB PO SCH (20:10)
[2017-06-09 06:52] VITALS: TEMP 97.6
[2017-06-09] MEDS: OLANZapine 5 MG TAB PO SCH (08:15)
--- NOTE | 2017-06-09 13:56 | PN ---
PROGRESS NOTE DATE OF SERVICE: 06/09/2017 CHIEF COMPLAINT: The patient was admitted on a pick-up order due to noncompliance. He was not making appointments at [facility]. He stopped taking medications. INTERVAL HISTORY: The patient has been doing fair. He had a quiet evening last night. He slept well today. He has been up. He wanders about the unit. He will interact some with others. He generally maintains a calm manner. He has been attending groups sparingly. We talked about the court issues. The patient has no objection to the court order process. For the most part patient seemed to suggest that overall he tends to have disorganized thoughts is the main issue relating to his treatment compliance. He has not had change in his general health. He tolerates his psychotropic medications. MENTAL STATUS: Patient gave fair eye contact. Psychomotor activity was a little restless. His thoughts were clear, answered questions with brief responses, sometimes his thoughts were little vague. His affect was mildly constricted. His mood was reserved. He did not appear to be distressed. ASSESSMENT: I will continue the current diagnosis and treatment plan. I will continue psychotropic medications the same. We reviewed issues related to his Zyprexa in terms of long-term treatment management. We reviewed metabolic issues. I discussed his case with [facility] to see if we could make arrangements to discharge the patient in coordination with his court hearing to where he could return home and possibly have a CT get him to the hearing next Thursday. He has a hearing set up for next Thursday at 3 pm. ERNESTO / CARLOS: [phone] /
[2017-06-09] MEDS: OLANZapine 10 MG TAB PO SCH (21:38)
[2017-06-10 05:34] VITALS: BP 95/50; PULSE 57
[2017-06-10] MEDS: OLANZapine 5 MG TAB PO SCH (08:19)
--- NOTE | 2017-06-10 13:04 | DS ---
DISCHARGE SUMMARY DATE OF SERVICE: 06/10/2017 DATE OF ADMISSION: 06/05/2017 DATE OF DISCHARGE: 06/10/2017 ADMISSION AND DISCHARGE DIAGNOSES: 1. Acute psychotic episode. 2. Rule out schizophrenia. 3. Substance abuse including sedative hypnotics, cannabis and alcohol. HISTORY OF PRESENT ILLNESS: The patient is a 21-year-old male. He had a recent admission here from April 30, 2017, discharge 05/11/2017. At that time his diagnoses included acute psychotic episode, rule out bipolar affective disorder with psychotic features, rule out major depression, rule out drug-induced psychosis. The patient went home to live with his grandfather, where he had been living. He apparently was not consistent in taking his medications. He had missed followup appointments at [facility]. He apparently was abusing Xanax and marijuana. He was seen by [facility], who referred him on a pick-up order because of his deferral status. He was brought back to the hospital on a demand for hearing. When he was discharged in May he was on Abilify 10 mg a day. He said that he did not continue taking it because he felt that it had made him pass out. He was admitted for further evaluation. PAST MEDICAL HISTORY AND PHYSICAL EXAM: As per medical consultation of Dr. Peterson. MENTAL STATUS EXAM: The patient had a normal speech pattern. Thoughts organized. Mood was good. There was no unusual or difficult behaviors. His cognition was intact. COURSE OF HOSPITALIZATION: Patient was admitted for a comprehensive medical, psychiatric and psychosocial evaluation. We engaged the patient in individual and group therapeutic activities. On admission, we reviewed medication issues. The patient was willing to go back on Zyprexa which was something he initially was uncomfortable with. He said the main concern previously was that when he read the literature information, he was concerned about potential weight gain, though he notes that when he was on Zyprexa for a limited period of time. He did not have any increase in appetite. During his hospitalization, he did fairly well. He attended groups. He interacted with others. He had a fairly good sleep pattern. He was cooperative. We coordinated with [facility] in regards to his treatment order. He does have a court hearing set up for next Thursday. [facility] was willing to work with the patient on an outpatient basis to follow him at time of discharge and provide support to get him to his court hearing next Thursday. Patient was able to engage appropriately in discharge planning. CONDITION AT DISCHARGE: Patient was stable. His mood was improved. He tolerated his medications well. He was cooperative. RECOMMENDATIONS AND FOLLOWUP: The patient is discharged to home. DISCHARGE MEDICATION: Zyprexa 10 mg a day. [facility], both [facility] and the courts agreed to the discharge with a plan for him to go to court next Thursday at 3 p.m. for demand for hearing. MMMICAHL / IJN: [id number] /
== END 2017-06-10 12:05 | disposition home or self-care (01) | DRG 885 ==
LOC: EC 22:01 → 3MHU 06-06 02:30
PROVIDERS: ADMIT Psychiatry & Neurology Psychiatry; ATTEND Psychiatry & Neurology Psychiatry
DX: F23 Brief psychotic disorder (principal); Z91.19 Patient's noncompliance with other medical treatment and regimen; F10.10 Alcohol abuse, uncomplicated; F12.90 Cannabis use, unspecified, uncomplicated; Z88.1 Allergy status to other antibiotic agents; F13.10 Sedative, hypnotic or anxiolytic abuse, uncomplicated
CPT/HCPCS: 80306; 81003; 99284

== ENCOUNTER 2024-11-27 03:10 | Emergency (ER) | payer BC, MEDICAID ==
[2024-11-27] MEDS: HYDROcodone/APAP 5-325MG 1 EACH TAB PO STA (03:25)
[2024-11-27] MEDS: IBUPROFEN 800 MG TAB PO STA (03:26)
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
[2024-11-27] MEDS: traMADol 50 MG STARTER PACK TAB BTL PO STA (05:20)
[2024-11-27 05:29] VITALS: BP 141/107; PULSE 82; RESP 18; TEMP 97.5
== END 2024-11-27 05:23 | disposition home or self-care (01) ==
LOC: EC 03:10
DX: S42.251A Displaced fracture of greater tuberosity of right humerus, initial encounter for closed fracture (principal); Z87.891 Personal history of nicotine dependence; Z88.1 Allergy status to other antibiotic agents; V89.2XXA Person injured in unspecified motor-vehicle accident, traffic, initial encounter; Y92.410 Unspecified street and highway as the place of occurrence of the external cause
CPT/HCPCS: 99284